=== PATIENT | male | born 1950 | race Caucasian/White ===

== ENCOUNTER 2024-05-17 23:06 | Emergency (ER) | payer OTHER, MEDICAID ==
[~2024-05-17] VITALS: Ht 180.3 cm; Wt 82.0 kg
[2024-05-17 23:14] VITALS: O2SAT 96
[2024-05-17] MEDS: SODIUM CHLORIDE 0.9% 1,000 ML IV ONE (23:53)
[2024-05-17] MEDS: MORPHINE SULFATE 2 MG/ML INJ (NOT FOR IM USE) IV ONE (23:54)
[2024-05-17] MEDS: MAGNESIUM/ALUMINUM HYDROXIDE/SIMETHICONE 30ML UDC PO STA (23:54)
[2024-05-17] MEDS: KETOROLAC 30MG/ML VIAL IV STA (23:54)
[2024-05-18 00:07] LABS: HEMATOCRIT. 43.4 % (42.0-52.0); HEMOGLOBIN. 14.5 g/dL (14.0-18.0); MEAN CORPUSCULAR HEMOGLOBIN 28.2 pg (28.0-32.0); MEAN CORPUSCULAR HGB CONC 33.5 g/dL (31.0-37.0); MEAN CORPUSCULAR VOLUME 84.1 fL (80.0-94.0); MEAN PLATELET VOLUME 9.4 fl (7.4-10.4); PLATELET 195 x1000/uL (130-400); RED BLOOD CELL COUNT 5.16 mill/uL (4.7-6.1); RED CELL DISTRIBUTION WIDTH 15.1 % (11.6-14.6); WHITE BLOOD COUNT 6.8 x1000/uL (4.5-11.0)
[2024-05-18 00:10] LABS: DIFFERENTIAL COMMENT 1
[2024-05-18 00:13] LABS: CHLORIDE 102 mEq/L (98-107); POTASSIUM 4.6 mEq/L (3.5-5.1); SODIUM 135 mEq/L (136-145)
[2024-05-18 00:15] LABS: CALCIUM 9.8 mg/dL (8.7-10.4); CARBON DIOXIDE 24 mEq/L (21-32)
[2024-05-18 00:20] LABS: CREATININE 1.3 mg/dL (0.6-1.3); GLUCOSE 391 mg/dL (70-105)
[2024-05-18 00:21] LABS: UREA NITROGEN BLOOD 17 mg/dL (9-23)
[2024-05-18 00:22] LABS: ALANINE AMINOTRANSFERASE < 7 IU/L (10-49); ALBUMIN 4.7 g/dL (3.2-4.8); ASPARTATE AMINOTRANSFERASE 17 IU/L (<34); BILIRUBIN DIRECT 0.3 mg/dL (<=3.0)
[2024-05-18 00:23] LABS: PROTEIN TOTAL 7.4 g/dL (6.0-8.3)
[2024-05-18] MEDS: FAMOTIDINE 20MG/2ML VIAL IV STA (00:25)
[2024-05-18 00:52] LABS: BETA HYDROXYBUTYRATE 1.1 mMol/L (0.0-0.3)
[2024-05-18] MEDS ORDERED: TOPUD MT (01:35)
[2024-05-18] MEDS ORDERED: MAG-55 MT (01:35)
[2024-05-18] MEDS ORDERED: ONDA-239 PO (01:35)
[2024-05-18] MEDS ORDERED: FAMO20TA8 MT (01:35)
[2024-05-18] MEDS ORDERED: LOPE2CAP MT (01:35)
[2024-05-18 01:39] VITALS: BP 135/68; PULSE 76; RESP 11; TEMP 36.66960; O2SAT 97
[2024-05-18 03:29] LABS: INR 0.9; PROTHROMBIN TIME 10.5 sec (9.6-11.0)
[2024-05-18 03:37] LABS: PLATELET ESTIMATE NORMAL
== END 2024-05-18 01:58 | disposition home or self-care (01) ==
LOC: ER 23:06
DX: R10.9 Unspecified abdominal pain (principal); E11.9 Type 2 diabetes mellitus without complications; I10 Essential (primary) hypertension; Z79.899 Other long term (current) drug therapy
CPT/HCPCS: 99284; 96374; 96361; 96375 ×2; 80076; 80048; 82010; 83690; 85025; 85610; 36415; J1885; J2270; J7030; J3490